=== PATIENT | female | born 1975 | race Caucasian/White ===

== ENCOUNTER 2021-02-11 22:43 | Inpatient (IN) | payer OTHER ==
[~2021-02-11] VITALS: Ht 170.2 cm; Wt 53.5 kg
[2021-02-11 22:52] VITALS: BP 103/68
[2021-02-11] MEDS ORDERED: CLONAZEPAM 0.50.5 M1 PO (23:01)
[2021-02-11] MEDS ORDERED: DEPAKOTE ER500 M1 PO (23:01)
[2021-02-11] MEDS ORDERED: WELLBUTRIN 100100 MG PO (23:02)
[2021-02-11 23:11] LABS: ABSOLUTE BASOPHILS 0.1 thou/uL (0.0-0.2); ABSOLUTE EOSINOPHILS 0.1 thou/uL (0.0-0.7); ABSOLUTE LYMPHOCYTES 1.7 thou/uL (0.8-5.3); ABSOLUTE MONOCYTES 0.5 thou/uL (0.0-1.2); ABSOLUTE NEUTROPHILS 3.4 thou/uL (1.6-8.1); EOSINOPHILS 1.1 %; HEMATOCRIT 37.4 % (37.0-47.0); HEMOGLOBIN 12.9 gm/dL (12.0-15.0); LYMPHOCYTES 29.9 %; MCH 32.1 pg (26.0-34.0); MCHC 34.6 g/dL (28.0-37.0); MONOCYTES 9.2 %; MPV 9.1 fl. (7.2-11.1); NUCLEATED RBCS 0 /100WBC; PLATELET COUNT* 190 thou/uL (150-400); POLYS 58.8 %; RBC 4.02 mil/uL (4.20-5.00); RDW-CV 13.4 % (10.5-14.5); WBC 5.8 thou/uL (4.0-11.0)
[2021-02-11 23:22] LABS: CALCIUM 8.5 mg/dL (8.5-10.1); CREATININE 0.7 mg/dL (0.6-1.3); POTASSIUM 3.6 mmol/L (3.5-5.1)
[2021-02-11 23:26] LABS: ALBUMIN 3.7 g/dL (3.4-5.0); TOTAL BILIRUBIN 0.3 mg/dL (<0.1-1.0); TOTAL PROTEIN 7.1 g/dL (6.4-8.2)
[2021-02-11 23:33] LABS: ALCOHOL 181 mg/dL (<10); SALICYLATE < 2.8 mg/dL (2.8-20.0)
[2021-02-11 23:39] LABS: ACETAMINOPHEN < 2 ug/mL (10-30)
[2021-02-12] VITALS (51 sets, daily range): BP systolic 86–127; BP diastolic 42–79
[2021-02-12 08:23] LABS: URINE BILIRUBIN NEGATIVE (Negative); URINE BLOOD NEGATIVE (Negative); URINE CLARITY CLEAR; URINE COLOR YELLOW; URINE GLUCOSE-RANDOM NEGATIVE (Negative); URINE KETONES NEGATIVE (Negative); URINE LEUKOCYTES-REFLEX NEGATIVE (Negative); URINE NITRITE-REFLEX NEGATIVE (Negative); URINE PROTEIN NEGATIVE (Negative); URINE UROBILINOGEN 0.2 E.U./dl (0.2-1.0)
[2021-02-12 08:26] LABS: AMP/METHAMP Negative (Negative); BARBITURATES Negative (Negative); BENZODIAZEPINES POSITIVE (Negative); COCAINE Negative (Negative); METHADONE Negative (Negative); OPIATES Negative (Negative); PCP Negative (Negative); THC Negative (Negative)
--- NOTE | 2021-02-12 14:36 | EKG ---
[place] [address] ELECTROCARDIOGRAM REPORT Name: RUPERTO FELTON Room: [address] ADM IN M.R.#: [id number] Admission: 02/12/21 Attend Phys: Natanael Reveles Discharge: Date of : 77 Date of Service: 02/11/21 2310 Report #: [id number] THIS REPORT FOR: //name// [facility] ED Test Date: 2021-02-11 Test Time: 23:10:04 Pat Name: RUPERTO FELTON Department: Room: [facility] Gender: F Wellness Health Coach: REENA Ybarra : 1975 Requested By: Cherry Burciaga Order Number: [id number] MD: Arturo Matute Measurements Intervals [place] Rate: 87 P: 70 NV: 134 QRS: 60 QRSD: 90 T: 60 QT: 365 QTc: 439 Interpretive Statements Sinus rhythm No previous ECG available for comparison Electronically Signed On 02-12-2021 14:35:57 CDT by Arturo Matute [email or web address] <ELECTRONICALLY SIGNED> By: Arturo Matute MD, [facility] 02/12/21 1435 2310 2310 Arturo Matute MD, [facility] /EPI
[2021-02-13] VITALS (13 sets, daily range): BP systolic 99–117; BP diastolic 63–75
[2021-02-13 05:47] LABS: HEMATOCRIT 31.8 % (37.0-47.0); MCH 32.6 pg (26.0-34.0); MCHC 34.6 g/dL (28.0-37.0); MCV 94.3 fL (80.0-100.0); MPV 9.6 fl. (7.2-11.1); RBC 3.38 mil/uL (4.20-5.00); RDW-CV 13.6 % (10.5-14.5); WBC 3.4 thou/uL (4.0-11.0)
[2021-02-13 06:15] LABS: ALBUMIN 2.7 g/dL (3.4-5.0); CALCIUM 7.4 mg/dL (8.5-10.1); CREATININE 0.6 mg/dL (0.6-1.3); MAGNESIUM 1.8 mg/dL (1.8-2.4); POTASSIUM 3.5 mmol/L (3.5-5.1); TOTAL BILIRUBIN 0.3 mg/dL (<0.1-1.0); TOTAL PROTEIN 5.4 g/dL (6.4-8.2)
== END 2021-02-13 15:20 | disposition home or self-care (01) | DRG 918 ==
LOC: M.ERS 22:43 → M.TBA-ER 02-12 01:00 → M.ICU 02-12 01:00 → M.2W 02-12 14:54
PROVIDERS: Emergency Medicine; Internal Medicine; ADMIT Internal Medicine; ATTEND Internal Medicine
DX: T42.4X2A Poisoning by benzodiazepines, intentional self-harm, initial encounter (principal); F31.9 Bipolar disorder, unspecified; F41.9 Anxiety disorder, unspecified; F17.210 Nicotine dependence, cigarettes, uncomplicated; Z20.822 Contact with and (suspected) exposure to COVID-19; Y92.89 Other specified places as the place of occurrence of the external cause; Z90.49 Acquired absence of other specified parts of digestive tract; Z88.2 Allergy status to sulfonamides; Z79.899 Other long term (current) drug therapy